=== PATIENT | female | born 1995 | race Caucasian/White ===

== ENCOUNTER 2019-01-17 09:34 | Emergency (ER) | payer OTHER, SELFPAY ==
[2019-01-17 09:39] VITALS: BP 119/49; PULSE 59; RESP 15; TEMP 36.8; O2SAT 100; BMI 36.6
--- NOTE | 2019-01-17 09:57 | DI.RAD.S_ITS ---
PROCEDURE: XR CHEST 1V INDICATIONS: chest pain TECHNIQUE: One view of the chest was acquired. COMPARISON: None. FINDINGS: Surgical changes and devices: None. Lungs and pleura: Lungs are clear. No pleural effusions or pneumothorax. Mediastinum: Mediastinal contours appear normal. Heart size is normal. Bones and chest wall: No suspicious bony lesions. Overlying soft tissues appear unremarkable. IMPRESSION: No acute cardiopulmonary findings. Dictated by: Khadijah Davey M.D. on 01/17/2019 at 9:20 Approved by: Khadijah Davey M.D. on 01/17/2019 at 9:21
[2019-01-17 10:19] LABS: Add Manual Diff / Slide Review NO; Basophils Absolute Auto 0 /uL (0-100); Basophils Percent Auto 0.5 % (0-2); Eosinophils Absolute Auto 0 /uL (0-450); Eosinophils Percent Auto 0.4 % (2-4); Hematocrit 37.3 % (36-46); Hemoglobin 12.8 g/dL (12.0-16.0); Lymphocytes Absolute Auto 2000 /uL (1100-4500); Lymphocytes Percent Auto 22.7 % (25-40); Mean Corpuscular HGB Conc 34.2 % (30-36); Mean Corpuscular Hemoglobin 29.9 PG (26-34); Mean Corpuscular Volume 87.4 fL (80-100); Monocytes Absolute Auto 600 /uL (0-900); Monocytes Percent Auto 6.5 % (3-14); Neutrophils Absolute Auto 6000 /uL (1500-7000); Neutrophils Percent Auto 69.9 % (50-75); Platelet Count 258 X10^3/uL (150-400); Red Blood Cell Count 4.27 X10^6/uL (4.0-5.2); Red Cell Distribution Width 13.5 % (11.6-14.8); White Blood Cell Count 8.6 X10^3/uL (4.5-11.0)
[2019-01-17 10:22] VITALS: BP 115/68; PULSE 61; RESP 21; O2SAT 100
[2019-01-17 10:26] LABS: INR 0.9 (0.9-1.3)
[2019-01-17 10:29] LABS: PTT Partial Thromboplastin Tim 30 SECONDS (26.4-36.2)
[2019-01-17 10:30] LABS: Alanine Aminotransferase 22 IU/L (9-52); Albumin 3.8 g/dL (3.5-5.0); Albumin Globulin Ratio 1.2 (1.0-2.8); Alkaline Phosphatase 66 U/L (38-126); Aspartate Aminotransferase 23 IU/L (14-36); BUN Creatinine Ratio 13.3 (6-22); Bilirubin Total 0.4 mg/dL (0.2-1.3); Blood Urea Nitrogen 8 mg/dL (7-17); Carbon Dioxide 25 mmol/L (22-32); Chloride 103 mmol/L (98-107); Creatine Kinase 32 U/L (30-135); Estimated Glomerular Filt Rate > 60.0 mL/min (>60); Globulin 3.2 g/dL (1.7-4.1); Glucose 89 mg/dL (70-100); HEMOLYSIS 15 (0-50); Lipase 26 U/L (23-300); Potassium 3.9 mmol/L (3.4-5.1); Sodium 138 mmol/L (137-145)
[2019-01-17] MEDS: SODIUM CHLORIDE 0.9% 1,000 ML 1000 ML IV (10:33)
[2019-01-17 10:42] LABS: Troponin I < 0.012 ng/mL (0.01-0.034)
[2019-01-17 11:06] VITALS: BP 110/96; PULSE 58; RESP 16; O2SAT 100
--- NOTE | 2019-01-17 11:09 | ED.SYNCOPE ---
HPI - Syncope General Chief Complaint: Syncope Stated Complaint: Syncope Time Seen by Provider: 01/17/19 10:08 Source: patient Mode of arrival: ambulatory Limitations: no limitations History of Present Illness HPI narrative: Patient comes emergency department after brief syncopal episode today. Patient states she was at work, which she began to feel hot and tingly well standing up. Patient states she then began to feel lightheaded, and that coworkers today that she collapsed, hitting her head on a plastic table as she went down. Patient believes she was only out for a very brief few seconds, and awakened to find herself in a sitting position on the ground. She states that she does not feel as though she injured her head. No pain or soreness or swelling anywhere that she has noticed. Patient states she does have a history of fainting previously, but this was associated with anemia that was treated with iron supplementation. Patient states she last had her iron indices checked about a year ago, and that these were normal at that time. Patient denies any bleeding from her vagina or elsewhere recently. She states she has been trying to drink plenty of fluid. No fevers or other illness. No chest pain or shortness of breath. No calf pain or unilateral lower extremity swelling. Patient denies feeling lightheaded at other times during this . Patient states she is about 23 weeks along, and it is her 1st . Patient denies dysuria. No abdominal pain. She has been feeling the baby move recently. No vomiting or other fluid loss. No other complaints at this time. Related Data Allergies Allergy/AdvReac Type Severity Reaction Status Date / Time No Known Drug Allergies Allergy Verified 01/17/19 09:49 Review of Systems Constitutional Denies chills, Denies fever(s), Denies lethargy and Denies weakness Eyes Denies change in vision, Denies eye discharge, Denies irritation and Denies loss of vision ENT Ears, Nose, Mouth, and Throat: Denies change in voice, Denies neck pain and Denies sore throat Cardiovascular Denies chest pain, Reports syncope, Denies irregular heart rhythm, Denies lightheadedness, Denies palpitations, Denies dyspnea, Denies dyspnea on exertion and Denies orthopnea Respiratory Denies cough, Denies dyspnea, Denies dyspnea on exertion and Denies wheezing Gastrointestinal Gastrointestinal: Denies abdominal pain, Denies change in bowel habits, Denies diarrhea, Denies nausea and Denies vomiting Genitourinary Denies hematuria, Denies flank pain, Denies urinary incontinence and Denies urinary urgency Musculoskeletal Denies neck pain Integumentary/Breasts Denies pruritus, Denies erythema, Denies rash and Denies wounds Neurologic Denies confusion, Reports syncope, Denies loss of vision and Denies weakness Psychiatric Denies anxiety, Denies confusion, Denies depression, Denies homicidal ideation and Denies suicidal ideation Endocrine Denies palpitations Hematologic/Lymphatic Denies easy bruising Allergic/Immunologic Denies wheezing [facility] Medical History Second trimester (Acute) Surgical History No pertinent past surgical history (Acute) Social History Smoking Status: Current every day smoker Social History Smoking Status: Current every day smoker Exam Initial Vital Signs Initial Vital Signs: Vital Signs Temperature 98.2 F 01/17/19 09:39 Pulse Rate 59 L 01/17/19 09:39 Respiratory Rate 15 01/17/19 09:39 Blood Pressure 119/49 L 01/17/19 09:39 Pulse Oximetry 100 01/17/19 09:39 Const General: cooperative and well developed Nutritional Appearance: well nourished Orientation: alert, awake, oriented x3 and not confused [facility] Head: normocephalic and atraumatic Ears: external ears normal Nose: external nose normal and No nasal discharge Face and sinus: face symmetric and No dry mucous membranes Mouth: oral mucosae normal and moist mucous membranes Teeth and gingiva: dentition normal Eyes General: appearance normal, both eyes and all related structures Eyelids: eyelids normal Conjunctivae: conjunctivae normal Sclera: sclerae normal Pupils: PERRL EOM: EOM intact bilaterally Neck Neck: normal visual inspection, trachea midline, No lymphadenopathy, No midline deformity and No JVD Lymphatic: No lymphedema Chest Chest: normal inspection of the chest Resp Effort & Inspection: normal respiratory effort, able to speak in complete sentences, no respiratory distress and no use of accessory muscles Auscultation: clear to auscultation bilaterally, no rales, no rhonchi and no wheezes Cardio Rate: regular rate Rhythm: regular rhythm Heart Sounds: no click, no gallops, no murmurs and no rubs Pulses: normal peripheral pulses GI Inspection: non-distended Palpation: soft, no hepatosplenomegaly, No guarding, No pulsatile mass and No tender Auscultation: normal bowel sounds Back/Spine/Pelvis Back: No CVA tenderness Cervical Spine: cervical ROM normal and No pain with cervical ROM Thoracic/Lumbar Spine: thoracic and lumbar spine normal to inspection Skin General: no rashes or lesions noted, No jaundice and No petechiae Neuro General: alert, oriented x3, gait normal and no focal motor deficits Speech: speech normal Extrem General: full ROM, no clubbing, cyanosis or edema, no pedal edema and no calf tenderness Psych Appearance: well kempt Mental Status: mental status grossly normal Attitude: cooperative Thought Content: normal and suicidality Judgment: judgment good Course Course Narrative: Patient was treated with IV fluids in the emergency department and kept on the cardiac cath technologist, which showed normal sinus rhythm. heart tones were found to be normal. Patient's examination was benign, and workup was unremarkable. I felt the patient was stable for discharge home. I had not found any emergent cause of her near syncopal episode. I discussed with the patient that is very important to drink plenty of fluids during her . If she begins to feel dizzy again while standing, she should immediately sit or lay down if possible. The patient expresses understanding. We have discussed the usual indications for return, as well as symptomatic management at home. Orders Ordered: ED Orders 01/17/19 09:57 XR chest 1V Stat EKG-12 Lead Stat 01/17/19 10:13 Complete Blood Count AUTO DIFF Stat Comprehensive Metabolic Panel Stat Lipase Stat Partial Thromboplastin Time Stat Prothrombin Time INR Stat Troponin & CK Cardiac Panel Stat Discontinued Medications Sodium Chloride (Normal Saline 0.9%) 1,000 mls @ 1,000 mls/hr IV BOLUS ONE Stop: 01/17/19 11:07 Last Infusion: 01/17/19 11:40 Dose: 0 mls/hr Admin: 01/17/19 10:33 Dose: 1,000 mls/hr Vital Signs - 8 hr 01/17/19 09:39 01/17/19 10:22 01/17/19 11:06 Temperature 98.2 F Pulse Rate 59 L 61 58 L Respiratory Rate 15 21 16 Blood Pressure 119/49 L Blood Pressure [Left Arm] 115/68 110/96 H Pulse Oximetry 100 100 100 01/17/19 11:30 Temperature Pulse Rate 59 L Respiratory Rate 18 Blood Pressure Blood Pressure [Left Arm] 106/57 L Pulse Oximetry 100 MDM - Syncope Medical Records Attestation: I reviewed the patient's medical records. Lab Data Attestation: I reviewed the patient's lab results. Result diagrams: 01/17/19 10:13 01/17/19 10:13 Lab Results 01/17/19 01/17/19 01/17/19 Range/Units 10:13 10:13 10:13 WBC 8.6 (4.5-11.0) X10^3/uL RBC 4.27 (4.0-5.2) X10^6/uL Hgb 12.8 (12.0-16.0) g/dL Hct 37.3 (36-46) % MCV 87.4 (80-100) fL MCH 29.9 (26-34) PG MCHC 34.2 (30-36) % RDW 13.5 (11.6-14.8) % Plt Count 258 (150-400) X10^3/uL Neut % (Auto) 69.9 (50-75) % Lymph % (Auto) 22.7 L (25-40) % [place] % (Auto) 6.5 (3-14) % Eos % (Auto) 0.4 L (2-4) % Baso % (Auto) 0.5 (0-2) % Neut # (Auto) 6000 (5785-4369) /uL Lymph # (Auto) 2000 (9748-2292) /uL [place] # (Auto) 600 (0-900) /uL Eos # (Auto) 0 (0-450) /uL Baso # (Auto) 0 (0-100) /uL PT 10.0 L (10.1-12.7) SECONDS INR 0.9 (0.9-1.3) APTT 30 (26.4-36.2) SECONDS Sodium 138 (137-145) mmol/L Potassium 3.9 (3.4-5.1) mmol/L Chloride 103 (98-107) mmol/L Carbon Dioxide 25 (22-32) mmol/L BUN 8 (7-17) mg/dL Creatinine 0.60 (0.52-1.04) mg/dL Estimated GFR > 60.0 (>60) mL/min BUN/Creatinine Ratio 13.3 (6-22) Glucose 89 (70-100) mg/dL Calcium 9.0 (8.4-10.2) mg/dL Total Bilirubin 0.4 (0.2-1.3) mg/dL AST 23 (14-36) IU/L ALT 22 (9-52) IU/L Alkaline Phosphatase 66 (38-126) U/L Total Creatine Kinase 32 (30-135) U/L CK-MB (CK-2) TNP CK-MB (CK-2) Rel Index TNP Troponin I < 0.012 (0.01-0.034) ng/mL Total Protein 7.0 (6.3-8.2) g/dL Albumin 3.8 (3.5-5.0) g/dL Globulin 3.2 (1.7-4.1) g/dL Albumin/Globulin Ratio 1.2 (1.0-2.8) Lipase 26 (23-300) U/L ECG Data Attestation: I personally reviewed and interpreted this ECG as follows: (See below) Interpretation: Twelve lead EKG performed January 17, 2019 at 9:39 a.m., as follows: Slightly irregular ventricular rhythm with a rate of 65 beats per minute MT interval 142 milliseconds QRS duration 95 millisecond QTC interval [address] T wave changes No ectopy Interpretation: Sinus rhythm with sinus arrhythmia; no signs of acute ischemia; normal EKG as interpreted by 80 mg. Discharge Plan Departure Patient Disposition: Home Clinical Impression: Syncope due to orthostatic hypotension, Second trimester Discharge Date/Time: 01/17/19 12:00 Interventions: ED Discharge Assessment Last Done: 01/17/19 11:59 Instructions: DI for Syncope in Adults (Fainting) Activity Restrictions/Additional Instructions: Your labs and EKG look great. There is no evidence of an emergent cause of her symptoms today. It is not uncommon for women to have issues with feeling lightheaded, and sometimes this progresses to fainting. Please be sure that your drinking a lot of water every day (at least 8 cups), and if you begin to feel lightheaded, please laid down right away. Referrals: Kristi Alvarado ARNP [Primary Care Provider] -
--- NOTE | 2019-01-17 11:13 | ED_ITS ---
HPI - Syncope General Chief Complaint: Syncope Stated Complaint: Syncope Time Seen by Provider: 01/17/19 10:08 Source: patient Mode of arrival: ambulatory Limitations: no limitations History of Present Illness HPI narrative: Patient comes emergency department after brief syncopal episode today. Patient states she was at work, which she began to feel hot and tingly well standing up. Patient states she then began to feel lightheaded, and that coworkers today that she collapsed, hitting her head on a plastic table as she went down. Patient believes she was only out for a very brief few seconds, and awakened to find herself in a sitting position on the ground. She states that she does not feel as though she injured her head. No pain or soreness or swelling anywhere that she has noticed. Patient states she does have a history of fainting previously, but this was associated with anemia that was treated w ith iron supplementation. Patient states she last had her iron indices checked about a year ago, and that these were normal at that time. Patient denies any bleeding from her vagina or elsewhere recently. She states she has been trying to drink plenty of fluid. No fevers or other illness. No chest pain or shortness of breath. No calf pain or unilateral lower extremity swelling. Patient denies feeling lightheaded at other times during this . Patient states she is about 23 weeks along, and it is her 1st . Patient denies dysuria. No abdominal pain. She has been feeling the baby move recently. No vomiting or other fluid loss. No other complaints at this time. Related Data Allergies Allergy/AdvReac Type Severity Reaction Status Date / Time No Known Drug Allergies Allergy Verified 01/17/19 09:49 Review of Systems Constitutional Denies chills, Denies fever(s), Denies lethargy and Denies weakness Eyes Denies change in vision, Denies eye discharge, Denies irritation and Denies loss of vision ENT Ears, Nose, Mouth, and Throat: Denies change in voice, Denies neck pain and Denies sore throat Cardiovascular Denies chest pain, Reports syncope, Denies irregular heart rhythm, Denies lightheadedness, Denies palpitations, Denies dyspnea, Denies dyspnea on exertion and Denies orthopnea Respiratory Denies cough, Denies dyspnea, Denies dyspnea on exertion and Denies wheezing Gastrointestinal Gastrointestinal: Denies abdominal pain, Denies change in bowel habits, Denies diarrhea, Denies nausea and Denies vomiting Genitourinary Denies hematuria, Denies flank pain, Denies urinary incontinence and Denies urinary urgency Musculoskeletal Denies neck pain Integumentary/Breasts Denies pruritus, Denies erythema, Denies rash and Denies wounds Neurologic Denies confusion, Reports syncope, Denies loss of vision and Denies weakness Psychiatric Denies anxiety, Denies confusion, Denies depression, Denies homicidal ideation and Denies suicidal ideation Endocrine Denies palpitations Hematologic/Lymphatic Denies easy bruising Allergic/Immunologic Denies wheezing [facility] Medical History Second trimester (Acute) Surgical History No pertinent past surgical history (Acute) Social History Smoking Status: Current every day smoker Social History Smoking Status: Current every day smoker Exam Initial Vital Signs Initial Vital Signs: Vital Signs Temperature 98.2 F 01/17/19 09:39 Pulse Rate 59 L 01/17/19 09:39 Respiratory Rate 15 01/17/19 09:39 Blood Pressure 119/49 L 01/17/19 09:39 Pulse Oximetry 100 01/17/19 09:39 Const General: cooperative and well developed Nutritional Appearance: well nourished Orientation: alert, awake, oriented x3 and not confused [facility] Head: normocephalic and atraumatic Ears: external ears normal Nose: external nose normal and No nasal discharge Face and sinus: face symmetric and No dry mucous membranes Mouth: oral mucosae normal and moist mucous membranes Teeth and gingiva: dentition normal Eyes General: appearance normal, both eyes and all related structures Eyelids: eyelids normal Conjunctivae: conjunctivae normal Sclera: sclerae normal Pupils: PERRL EOM: EOM intact bilaterally Neck Neck: normal visual inspection, trachea midline, No lymphadenopathy, No midline deformity and No JVD Lymphatic: No lymphedema Chest Chest: normal inspection of the chest Resp Effort & Inspection: normal respiratory effort, able to speak in complete sentences, no respiratory distress and no use of accessory muscles Auscultation: clear to auscultation bilaterally, no rales, no rhonchi and no wheezes Cardio Rate: regular rate Rhythm: regular rhythm Heart Sounds: no click, no gallops, no murmurs and no rubs Pulses: normal peripheral pulses GI Inspection: non-distended Palpation: soft, no hepatosplenomegaly, No guarding, No pulsatile mass and No tender Auscultation: normal bowel sounds Back/Spine/Pelvis Back: No CVA tenderness Cervical Spine: cervical ROM normal and No pain with cervical ROM Thoracic/Lumbar Spine: thoracic and lumbar spine normal to inspection Skin General: no rashes or lesions noted, No jaundice and No petechiae Neuro General: alert, oriented x3, gait normal and no focal motor deficits Speech: speech normal Extrem General: full ROM, no clubbing, cyanosis or edema, no pedal edema and no calf tenderness Psych Appearance: well kempt Mental Status: mental status grossly normal Attitude: cooperative Thought Content: normal and suicidality Judgment: judgment good Course Course Narrative: Patient was treated with IV fluids in the emergency department and kept on the metal moulder, which showed normal sinus rhythm. heart tones were found to be normal. Patient's examination was benign, and workup was unremarkable. I felt the patient was stable for discharge home. I had not found any emergent cause of her near syncopal episode. I discussed with the patient that is very important to drink plenty of fluids during her . If she begins to feel dizzy again while standing, she should immediately sit or lay down if possible. The patient expresses understanding. We have discussed the usual indications for return, as well as symptomatic management at home. Orders Ordered: ED Orders 01/17/19 09:57 XR chest 1V Stat EKG-12 Lead Stat 01/17/19 10:13 Complete Blood Count AUTO DIFF Stat Comprehensive Metabolic Panel Stat Lipase Stat Partial Thromboplastin Time Stat Prothrombin Time INR Stat Troponin & CK Cardiac Panel Stat Discontinued Medications Sodium Chloride (Normal Saline 0.9%) 1,000 mls @ 1,000 mls/hr IV BOLUS ONE Stop: 01/17/19 11:07 Last Infusion: 01/17/19 11:40 Dose: 0 mls/hr Admin: 01/17/19 10:33 Dose: 1,000 mls/hr Vital Signs - 8 hr 01/17/19 09:39 01/17/19 10:22 01/17/19 11:06 Temperature 98.2 F Pulse Rate 59 L 61 58 L Respiratory Rate 15 21 16 Blood Pressure 119/49 L Blood Pressure [Left Arm] 115/68 110/96 H Pulse Oximetry 100 100 100 01/17/19 11:30 Temperature Pulse Rate 59 L Respiratory Rate 18 Blood Pressure Blood Pressure [Left Arm] 106/57 L Pulse Oximetry 100 MDM - Syncope Medical Records Attestation: I reviewed the patient's medical records. Lab Data Attestation: I reviewed the patient's lab results. Result diagrams: 01/17/19 10:13 01/17/19 10:13 Lab Results 01/17/19 01/17/19 01/17/19 Range/Units 10:13 10:13 10:13 WBC 8.6 (4.5-11.0) X10^3/uL RBC 4.27 (4.0-5.2) X10^6/uL Hgb 12.8 (12.0-16.0) g/dL Hct 37.3 (36-46) % MCV 87.4 (80-100) fL MCH 29.9 (26-34) PG MCHC 34.2 (30-36) % RDW 13.5 (11.6-14.8) % Plt Count 258 (150-400) X10^3/uL Neut % (Auto) 69.9 (50-75) % Lymph % (Auto) 22.7 L (25-40) % [place] % (Auto) 6.5 (3-14) % Eos % (Auto) 0.4 L (2-4) % Baso % (Auto) 0.5 (0-2) % Neut # (Auto) 6000 (5591-2326) /uL Lymph # (Auto) 2000 (1534-6859) /uL [place] # (Auto) 600 (0-900) /uL Eos # (Auto) 0 (0-450) /uL Baso # (Auto) 0 (0-100) /uL PT 10.0 L (10.1-12.7) SECONDS INR 0.9 (0.9-1.3) APTT 30 (26.4-36.2) SECONDS Sodium 138 (137-145) mmol/L Potassium 3.9 (3.4-5.1) mmol/L Chloride 103 (98-107) mmol/L Carbon Dioxide 25 (22-32) mmol/L BUN 8 (7-17) mg/dL Creatinine 0.60 (0.52-1.04) mg/dL Estimated GFR > 60.0 (>60) mL/min BUN/Creatinine Ratio 13.3 (6-22) Glucose 89 (70-100) mg/dL Calcium 9.0 (8.4-10.2) mg/dL Total Bilirubin 0.4 (0.2-1.3) mg/dL AST 23 (14-36) IU/L ALT 22 (9-52) IU/L Alkaline Phosphatase 66 (38-126) U/L Total Creatine Kinase 32 (30-135) U/L CK-MB (CK-2) TNP CK-MB (CK-2) Rel Index TNP Troponin I < 0.012 (0.01-0.034) ng/mL Total Protein 7.0 (6.3-8.2) g/dL Albumin 3.8 (3.5-5.0) g/dL Globulin 3.2 (1.7-4.1) g/dL Albumin/Globulin Ratio 1.2 (1.0-2.8) Lipase 26 (23-300) U/L ECG Data Attestation: I personally reviewed and interpreted this ECG as follows: (See below) Interpretation: Twelve lead EKG performed January 17, 2019 at 9:39 a.m., as follows: Slightly irregular ventricular rhythm with a rate of 65 beats per minute PA interval 142 milliseconds QRS duration 95 millisecond QTC interval [address] T wave changes No ectopy Interpretation: Sinus rhythm with sinus arrhythmia; no signs of acute ischemia; normal EKG as interpreted by 80 mg. Discharge Plan Departure Patient Disposition: Home Clinical Impression: Syncope due to orthostatic hypotension, Second trimester Discharge Date/Time: 01/17/19 12:00 Interventions: ED Discharge Assessment Last Done: 01/17/19 11:59 Instructions: DI for Syncope in Adults (Fainting) Activity Restrictions/Additional Instructions: Your labs and EKG look great. There is no evidence of an emergent cause of her symptoms today. It is not uncommon for women to have issues with feeling lightheaded, and sometimes this progresses to fainting. Please be sure that your drinking a lot of water every day (at least 8 cups), and if you begin to feel lightheaded, please laid down right away. Referrals: Kristi Alvarado ARNP [Primary Care Provider] -
[2019-01-17 11:30] VITALS: BP 106/57; PULSE 59; PULSE 64; RESP 18; RESP 20; O2SAT 100
== END 2019-01-17 12:00 | disposition home or self-care (01) ==
PROVIDERS: Emergency Provider Emergency Medicine; PCP Nurse Practitioner Family
DX: I95.1 Orthostatic hypotension (principal); Z33.1 Pregnant state, incidental; Y99.0 Civilian activity done for income or pay
CPT/HCPCS: 36591; 71045; 80053; 82550; 83690; 84484; 85025; 85610; 85730; 93005; 96360; 99283; 99285